=== PATIENT | male | born 1960 | race Caucasian/White ===

== ENCOUNTER 2020-11-10 08:57 | Inpatient (IN) | payer OTHER ==
[2020-11-10] MEDS ORDERED: ACETAMINOPHEN 1000 MG/100 ML VIAL (NON FORMULARY) IVPB ONE (09:54)
[2020-11-10 11:16] LABS: BASO % 0.9 % (0-2.0); EOS % 1.8 % (0-4.5); HEMATOCRIT 26.9 % (35.4-49); HEMOGLOBIN 9.5 GM/dL (11.7-16.9); LYMPH % 12.2 % (8-40); MCH 33.7 pg (25.7-33.7); MCHC 35.5 g/dl (32.0-35.9); MEAN PLT VOLUME 8.1 fl (7.5-11.1); MONO % 12.4 % (3.8-10.2); NEUT % 72.7 % (42.8-82.8); PLATELET COUNT 162 K/MM3 (134-434); RBC 2.83 M/mm3 (4.00-5.60); RDW 17.4 % (11.9-15.9); WHITE BLOOD COUNT 7.4 K/mm3 (4.0-10.0)
[2020-11-10 11:23] LABS: INR 1.34 (0.83-1.09); PROTHROMBIN TIME (PATIENT) 16.4 SEC (9.7-13.0)
[2020-11-10 11:26] LABS: ACTIVATED PTT 36.4 SECONDS (25.2-36.5)
[2020-11-10 11:30] LABS: CALCIUM 8.7 mg/dL (8.5-10.1); POTASSIUM 4.5 mmol/L (3.5-5.1)
[2020-11-10 11:32] LABS: ALBUMIN 2.2 g/dl (3.4-5.0); BLOOD UREA NITROGEN 18.2 mg/dL (7-18)
[2020-11-10 11:35] LABS: CREATININE 1.2 mg/dL (0.55-1.3)
[2020-11-10 11:36] LABS: BILIRUBIN,TOTAL 1.8 mg/dL (0.2-1); TOT PROT 7.7 g/dl (6.4-8.2)
[2020-11-10 11:39] LABS: N-TERMINAL BNP 1535.5 pg/ml (5-125)
[2020-11-10] MEDS ORDERED: ACETAMINOPHEN INJECTION 100 ML IVPB ONE (12:16)
[2020-11-10] MEDS ORDERED: FUROSEMIDE 40 MG/4 ML INJECTABLE VIAL IVPUSH ONE (12:51)
[2020-11-10] MEDS ORDERED: FUROSEMIDE 40 MG/4 ML INJECTABLE VIAL ONE (14:39)
[2020-11-10 17:22] VITALS: BMI 26.2
[2020-11-10] MEDS: NADOLOL 40 MG TABLET (FP) PO SCH (21:49)
[2020-11-10] MEDS: RIFAXIMIN 550 MG TABLET (UD) PO SCH (21:49)
[2020-11-10] MEDS: ATORVASTATIN CA 20 MG TABLET (FP) PO SCH (21:49)
[2020-11-10] MEDS: SPIRONOLACTONE 25 MG TABLET PO SCH (21:49)
[2020-11-10] MEDS: HEPARIN NA (PORCINE) 5,000 UNITS/ML 1ML VIAL SQ SCH (21:49)
[2020-11-10] MEDS: LACTULOSE 20 GM/30 ML UDC (FOR ORAL USE ONLY) PO SCH (21:50)
[2020-11-11 01:48] LABS: EPI CELLS 4 /uL (0-25.1); HYALINE CASTS 1 /uL (0-3.1); URINE APPEARANCE CLEAR; URINE BACTERIA 34 /uL (0-1359); URINE BILIRUBIN NEGATIVE (NEGATIVE); URINE COLOR YELLOW; URINE GLUCOSE (UA) NEGATIVE (NEGATIVE); URINE KETONE NEGATIVE (NEGATIVE); URINE LEUK ESTERASE NEGATIVE (NEGATIVE); URINE NITRITE NEGATIVE (NEGATIVE); URINE PROTEIN NEGATIVE (NEGATIVE); URINE RBC 25 /uL (0-23.9); URINE WBC 11 /uL (0-25.8)
[2020-11-11] MEDS ORDERED: ACETAMINOPHEN 325 MG TABLET (FP) PO PRN (02:44)
[2020-11-11] MEDS: FUROSEMIDE 40 MG/4 ML INJECTABLE VIAL IVPUSH SCH ×2 (06:17→13:35)
[2020-11-11] MEDS: LACTULOSE 20 GM/30 ML UDC (FOR ORAL USE ONLY) PO SCH ×5 (06:17→21:30)
[2020-11-11 07:09] LABS: BASO % 0.9 % (0-2.0); EOS % 2.4 % (0-4.5); HEMATOCRIT 24.7 % (35.4-49); HEMOGLOBIN 8.9 GM/dL (11.7-16.9); LYMPH % 11.4 % (8-40); MCH 34.2 pg (25.7-33.7); MCHC 36.2 g/dl (32.0-35.9); MEAN CELL VOLUME 94.5 fl (80-96); MONO % 13.9 % (3.8-10.2); NEUT % 71.4 % (42.8-82.8); PLATELET COUNT 152 K/MM3 (134-434); RBC 2.61 M/mm3 (4.00-5.60); RDW 17.7 % (11.9-15.9); WHITE BLOOD COUNT 8.1 K/mm3 (4.0-10.0)
[2020-11-11 07:32] LABS: CHLORIDE 106 mmol/L (98-107); POTASSIUM 3.7 mmol/L (3.5-5.1); SODIUM 138 mmol/L (136-145)
[2020-11-11 07:38] LABS: ALBUMIN 2.1 g/dl (3.4-5.0); ANION GAP 3 MMOL/L (8-16); BLOOD UREA NITROGEN 20.5 mg/dL (7-18); CO2 29 mmol/L (21-32); GLUCOSE,RANDOM 142 mg/dL (74-106)
[2020-11-11 07:39] LABS: CALCIUM 7.9 mg/dL (8.5-10.1); MAGNESIUM 1.8 mg/dL (1.8-2.4)
[2020-11-11 07:41] LABS: BILIRUBIN,TOTAL 1.5 mg/dL (0.2-1); CHOLESTEROL 111 mg/dL (50-200); CREATININE 1.2 mg/dL (0.55-1.3); LDL CHOLESTEROL (ONLY SJRH) 44 mg/dL (5-100); SGOT/AST 25 U/L (15-37); SGPT/ALT 9 U/L (13-61); TOT PROT 7.3 g/dl (6.4-8.2); TRIGLYCERIDES 35 mg/dL (0-150)
[2020-11-11 07:43] LABS: ALK PHOS 92 U/L (45-117)
[2020-11-11 07:44] LABS: HDL CHOLESTEROL 65 mg/dL (40-60)
[2020-11-11] MEDS ORDERED: PT OWN MED DRAWER 7, Y5N ONE (09:06)
[2020-11-11] MEDS: NADOLOL 40 MG TABLET (FP) PO SCH ×2 (09:25→22:28)
[2020-11-11] MEDS: HEPARIN NA (PORCINE) 5,000 UNITS/ML 1ML VIAL SQ SCH ×2 (09:26→21:29)
[2020-11-11] MEDS: RIFAXIMIN 550 MG TABLET (UD) PO SCH ×2 (09:26→22:28)
[2020-11-11] MEDS: PANTOPRAZOLE 40 MG TABLET PO SCH (09:26)
[2020-11-11] MEDS: MULTIVITAMINS (DAILY MVI) TABLET (FP) PO SCH (09:27)
[2020-11-11] MEDS: FOLIC ACID 1 MG TABLET (FP) PO SCH (09:27)
[2020-11-11] MEDS: SPIRONOLACTONE 25 MG TABLET PO SCH ×2 (09:27→21:28)
[2020-11-11] MEDS: ATORVASTATIN CA 20 MG TABLET (FP) PO SCH (21:29)
[2020-11-12 07:00] LABS: BASO % 1.2 % (0-2.0); EOS % 5.3 % (0-4.5); HEMATOCRIT 24.1 % (35.4-49); HEMOGLOBIN 8.5 GM/dL (11.7-16.9); LYMPH % 20.7 % (8-40); MCH 33.6 pg (25.7-33.7); MCHC 35.4 g/dl (32.0-35.9); MEAN CELL VOLUME 94.8 fl (80-96); MEAN PLT VOLUME 7.5 fl (7.5-11.1); MONO % 16.6 % (3.8-10.2); NEUT % 56.2 % (42.8-82.8); PLATELET COUNT 148 K/MM3 (134-434); RBC 2.54 M/mm3 (4.00-5.60); RDW 17.6 % (11.9-15.9); WHITE BLOOD COUNT 6.2 K/mm3 (4.0-10.0)
[2020-11-12 07:32] LABS: POTASSIUM 3.5 mmol/L (3.5-5.1)
[2020-11-12 07:44] LABS: BLOOD UREA NITROGEN 23.7 mg/dL (7-18)
[2020-11-12 07:46] LABS: ALBUMIN 1.9 g/dl (3.4-5.0)
[2020-11-12 07:48] LABS: CREATININE 1.3 mg/dL (0.55-1.3)
[2020-11-12 07:49] LABS: TOT PROT 6.7 g/dl (6.4-8.2)
[2020-11-12] MEDS ORDERED: PT OWN MED DRAWER 7, Y5N ONE ×2 (09:33→20:57)
[2020-11-12] MEDS ORDERED: FUROSEMIDE 40 MG/4 ML INJECTABLE VIAL IVPUSH SCH (10:00)
[2020-11-12] MEDS: PANTOPRAZOLE 40 MG TABLET PO SCH (12:32)
[2020-11-12] MEDS: LACTULOSE 20 GM/30 ML UDC (FOR ORAL USE ONLY) PO SCH ×4 (12:32→21:20)
[2020-11-12] MEDS: MULTIVITAMINS (DAILY MVI) TABLET (FP) PO SCH (12:32)
[2020-11-12] MEDS: FOLIC ACID 1 MG TABLET (FP) PO SCH (12:32)
[2020-11-12] MEDS: HEPARIN NA (PORCINE) 5,000 UNITS/ML 1ML VIAL SQ SCH ×2 (12:33→21:20)
[2020-11-12] MEDS: NADOLOL 40 MG TABLET (FP) PO SCH ×3 (12:33→21:18)
[2020-11-12] MEDS: SPIRONOLACTONE 25 MG TABLET PO SCH ×2 (12:33→21:18)
[2020-11-12] MEDS: RIFAXIMIN 550 MG TABLET (UD) PO SCH ×2 (12:34→21:18)
[2020-11-12] MEDS: ATORVASTATIN CA 20 MG TABLET (FP) PO SCH (21:18)
[2020-11-13 06:32] LABS: BASO % 1.3 % (0-2.0); EOS % 6.1 % (0-4.5); HEMOGLOBIN 8.6 GM/dL (11.7-16.9); LYMPH % 21.1 % (8-40); MCH 33.2 pg (25.7-33.7); MCHC 34.6 g/dl (32.0-35.9); MEAN CELL VOLUME 96.1 fl (80-96); MEAN PLT VOLUME 7.6 fl (7.5-11.1); MONO % 15.4 % (3.8-10.2); NEUT % 56.1 % (42.8-82.8); PLATELET COUNT 153 K/MM3 (134-434); RDW 18.6 % (11.9-15.9); WHITE BLOOD COUNT 5.2 K/mm3 (4.0-10.0)
[2020-11-13 06:52] LABS: CALCIUM 8.4 mg/dL (8.5-10.1)
[2020-11-13 06:53] LABS: BLOOD UREA NITROGEN 21.4 mg/dL (7-18)
[2020-11-13 06:56] LABS: CREATININE 1.5 mg/dL (0.55-1.3)
[2020-11-13 06:57] LABS: BILIRUBIN,TOTAL 0.8 mg/dL (0.2-1); TOT PROT 6.8 g/dl (6.4-8.2)
[2020-11-13] MEDS ORDERED: PT OWN MED DRAWER 7, Y5N ONE ×3 (09:52→21:14)
[2020-11-13] MEDS: SPIRONOLACTONE 25 MG TABLET PO SCH ×2 (10:47→21:39)
[2020-11-13] MEDS: NADOLOL 40 MG TABLET (FP) PO SCH ×2 (10:48→21:39)
[2020-11-13] MEDS: LACTULOSE 20 GM/30 ML UDC (FOR ORAL USE ONLY) PO SCH ×4 (10:48→21:38)
[2020-11-13] MEDS: FOLIC ACID 1 MG TABLET (FP) PO SCH (10:49)
[2020-11-13] MEDS: HEPARIN NA (PORCINE) 5,000 UNITS/ML 1ML VIAL SQ SCH ×2 (10:50→21:39)
[2020-11-13] MEDS: MULTIVITAMINS (DAILY MVI) TABLET (FP) PO SCH (10:51)
[2020-11-13] MEDS: FUROSEMIDE 40 MG TABLET (FP) PO SCH (10:51)
[2020-11-13] MEDS: RIFAXIMIN 550 MG TABLET (UD) PO SCH ×2 (10:51→21:39)
[2020-11-13] MEDS: PANTOPRAZOLE 40 MG TABLET PO SCH (10:51)
[2020-11-13] MEDS: ATORVASTATIN CA 20 MG TABLET (FP) PO SCH (21:39)
[2020-11-14 07:59] LABS: BASO % 1.2 % (0-2.0); EOS % 7.3 % (0-4.5); HEMATOCRIT 26.2 % (35.4-49); HEMOGLOBIN 9.3 GM/dL (11.7-16.9); LYMPH % 22.1 % (8-40); MCH 33.5 pg (25.7-33.7); MCHC 35.3 g/dl (32.0-35.9); MEAN PLT VOLUME 7.7 fl (7.5-11.1); MONO % 13.5 % (3.8-10.2); NEUT % 55.9 % (42.8-82.8); PLATELET COUNT 172 K/MM3 (134-434); RBC 2.76 M/mm3 (4.00-5.60); RDW 18.5 % (11.9-15.9); WHITE BLOOD COUNT 5.5 K/mm3 (4.0-10.0)
[2020-11-14 08:14] LABS: POTASSIUM 3.9 mmol/L (3.5-5.1)
[2020-11-14 08:19] LABS: ALBUMIN 2.1 g/dl (3.4-5.0); BLOOD UREA NITROGEN 19.1 mg/dL (7-18); CALCIUM 8.2 mg/dL (8.5-10.1)
[2020-11-14 08:20] LABS: MAGNESIUM 1.8 mg/dL (1.8-2.4)
[2020-11-14 08:22] LABS: CREATININE 1.4 mg/dL (0.55-1.3); PHOSPHOROUS 3.1 mg/dL (2.5-4.9)
[2020-11-14 08:24] LABS: BILIRUBIN,TOTAL 1.2 mg/dL (0.2-1); TOT PROT 7.4 g/dl (6.4-8.2)
[2020-11-14] MEDS ORDERED: PT OWN MED DRAWER 7, Y5N ONE (09:19)
[2020-11-14] MEDS: LACTULOSE 20 GM/30 ML UDC (FOR ORAL USE ONLY) PO SCH ×4 (09:33→22:24)
[2020-11-14] MEDS: FOLIC ACID 1 MG TABLET (FP) PO SCH (09:34)
[2020-11-14] MEDS: MULTIVITAMINS (DAILY MVI) TABLET (FP) PO SCH (09:34)
[2020-11-14] MEDS: SPIRONOLACTONE 25 MG TABLET PO SCH ×2 (09:34→22:28)
[2020-11-14] MEDS: PANTOPRAZOLE 40 MG TABLET PO SCH (09:34)
[2020-11-14] MEDS: NADOLOL 40 MG TABLET (FP) PO SCH ×2 (09:35→22:27)
[2020-11-14] MEDS: RIFAXIMIN 550 MG TABLET (UD) PO SCH ×2 (09:35→22:28)
[2020-11-14] MEDS: FUROSEMIDE 40 MG TABLET (FP) PO SCH (09:35)
[2020-11-14] MEDS: HEPARIN NA (PORCINE) 5,000 UNITS/ML 1ML VIAL SQ SCH ×2 (09:36→22:26)
[2020-11-14] MEDS ORDERED: ACETAMINOPHEN 325 MG TABLET (FP) PO PRN (19:10)
[2020-11-14] MEDS ORDERED: NADOLOL 20 MG TABLET (FP) ONE (21:56)
[2020-11-14] MEDS: ATORVASTATIN CA 20 MG TABLET (FP) PO SCH (22:27)
[2020-11-15] MEDS: RIFAXIMIN 550 MG TABLET (UD) PO SCH ×2 (09:45→22:06)
[2020-11-15] MEDS: LACTULOSE 20 GM/30 ML UDC (FOR ORAL USE ONLY) PO SCH ×4 (09:45→22:05)
[2020-11-15] MEDS: HEPARIN NA (PORCINE) 5,000 UNITS/ML 1ML VIAL SQ SCH ×2 (09:45→22:06)
[2020-11-15] MEDS: FOLIC ACID 1 MG TABLET (FP) PO SCH (09:45)
[2020-11-15] MEDS: PANTOPRAZOLE 40 MG TABLET PO SCH (09:46)
[2020-11-15] MEDS: FUROSEMIDE 40 MG TABLET (FP) PO SCH (09:46)
[2020-11-15] MEDS: MULTIVITAMINS (DAILY MVI) TABLET (FP) PO SCH (09:46)
[2020-11-15] MEDS: SPIRONOLACTONE 25 MG TABLET PO SCH ×3 (09:46→22:05)
[2020-11-15] MEDS: NADOLOL 40 MG TABLET (FP) PO SCH (09:47)
[2020-11-15] MEDS: ATORVASTATIN CA 20 MG TABLET (FP) PO SCH (22:06)
[2020-11-16 08:30] LABS: BASO % 1.3 % (0-2.0); EOS % 5.3 % (0-4.5); HEMATOCRIT 23.4 % (35.4-49); HEMOGLOBIN 8.4 GM/dL (11.7-16.9); LYMPH % 24.5 % (8-40); MCH 33.8 pg (25.7-33.7); MCHC 35.9 g/dl (32.0-35.9); MEAN CELL VOLUME 94.1 fl (80-96); MEAN PLT VOLUME 7.4 fl (7.5-11.1); MONO % 15.4 % (3.8-10.2); NEUT % 53.5 % (42.8-82.8); PLATELET COUNT 131 K/MM3 (134-434); RBC 2.49 M/mm3 (4.00-5.60); RDW 18.2 % (11.9-15.9); WHITE BLOOD COUNT 5.9 K/mm3 (4.0-10.0)
[2020-11-16 08:31] LABS: INR 1.24 (0.83-1.09); PROTHROMBIN TIME (PATIENT) 15.2 SEC (9.7-13.0)
[2020-11-16 08:50] LABS: POTASSIUM 3.7 mmol/L (3.5-5.1)
[2020-11-16 08:58] LABS: CALCIUM 8.4 mg/dL (8.5-10.1)
[2020-11-16 08:59] LABS: ALBUMIN 1.8 g/dl (3.4-5.0); BLOOD UREA NITROGEN 16.1 mg/dL (7-18)
[2020-11-16 09:02] LABS: CREATININE 1.4 mg/dL (0.55-1.3)
[2020-11-16 09:04] LABS: BILIRUBIN,TOTAL 0.9 mg/dL (0.2-1); TOT PROT 6.5 g/dl (6.4-8.2)
[2020-11-16] MEDS: LACTULOSE 20 GM/30 ML UDC (FOR ORAL USE ONLY) PO SCH ×4 (10:00→21:17)
[2020-11-16] MEDS: SPIRONOLACTONE 25 MG TABLET PO SCH ×2 (10:00→21:14)
[2020-11-16] MEDS ORDERED: NADOLOL 20 MG TABLET (FP) ONE (16:56)
[2020-11-16] MEDS: PANTOPRAZOLE 40 MG TABLET PO SCH (16:58)
[2020-11-16] MEDS: FOLIC ACID 1 MG TABLET (FP) PO SCH (16:58)
[2020-11-16] MEDS: NADOLOL 40 MG TABLET (FP) PO SCH (16:58)
[2020-11-16] MEDS: FUROSEMIDE 40 MG TABLET (FP) PO SCH (17:01)
[2020-11-16] MEDS: MULTIVITAMINS (DAILY MVI) TABLET (FP) PO SCH (17:02)
[2020-11-16] MEDS: RIFAXIMIN 550 MG TABLET (UD) PO SCH ×2 (17:02→21:14)
[2020-11-16] MEDS: ATORVASTATIN CA 20 MG TABLET (FP) PO SCH (21:14)
[2020-11-16] MEDS: HEPARIN NA (PORCINE) 5,000 UNITS/ML 1ML VIAL SQ SCH (21:17)
[2020-11-17] MEDS ORDERED: NADOLOL 20 MG TABLET (FP) ONE (09:31)
[2020-11-17] MEDS: LACTULOSE 20 GM/30 ML UDC (FOR ORAL USE ONLY) PO SCH (09:35)
[2020-11-17] MEDS: FUROSEMIDE 40 MG TABLET (FP) PO SCH (09:35)
[2020-11-17] MEDS: SPIRONOLACTONE 25 MG TABLET PO SCH (09:36)
[2020-11-17] MEDS: HEPARIN NA (PORCINE) 5,000 UNITS/ML 1ML VIAL SQ SCH (09:36)
[2020-11-17] MEDS: RIFAXIMIN 550 MG TABLET (UD) PO SCH (09:37)
[2020-11-17] MEDS: MULTIVITAMINS (DAILY MVI) TABLET (FP) PO SCH (09:37)
[2020-11-17] MEDS: PANTOPRAZOLE 40 MG TABLET PO SCH (09:37)
[2020-11-17] MEDS: FOLIC ACID 1 MG TABLET (FP) PO SCH (09:37)
[2020-11-17] MEDS: NADOLOL 40 MG TABLET (FP) PO SCH (09:38)
[2020-11-17 12:12] VITALS: BP 130/66; PULSE 64; TEMP 98.4
== END 2020-11-17 14:00 | DRG 279 ==
LOC: JER 08:57 → JERBED 13:06 → J4W 16:53 → J8W 11-14 14:50
PROVIDERS: ADMIT Family Medicine; ATTEND Family Medicine
PROC: 0W9G3ZZ Drainage of Peritoneal Cavity, Percutaneous Approach (ICD-10-PCS; principal; 2020-11-16)
DX: K72.90 Hepatic failure, unspecified without coma (principal); R51.9 Headache, unspecified; R42 Dizziness and giddiness; D63.8 Anemia in other chronic diseases classified elsewhere; N18.9 Chronic kidney disease, unspecified; K70.31 Alcoholic cirrhosis of liver with ascites; N28.1 Cyst of kidney, acquired; N17.9 Acute kidney failure, unspecified; E22.2 Syndrome of inappropriate secretion of antidiuretic hormone
CPT/HCPCS: 36415; 70450-TC; 71045-TC-FY; 76700-TC; 76942-TC; 80048; 80053; 80061; 80307; 81003; 82140; 82272; 82550; 82607; 83036; 83721; 83735; 83880; 84100; 84443; 84484; 85025; 85610; 85730; 86140; 87086; 87804; 93005; 93010; 93306-TC; 97116-GP; 97162-GP; 99285-25; C9803; J0131; J1644; U0003